=== PATIENT | male | born 1965 | race Caucasian/White ===

== ENCOUNTER 2018-01-12 10:06 | Outpatient (CLI) | payer OTHER ==
[2018-01-12 11:24] LABS: #Basophils 0.1 thou/uL (0.0-0.2); #Eosinphils 0.1 thou/uL (0.0-0.7); #Lymphocytes 1.6 thou/uL (1.20-3.40); #Monocytes 0.5 thou/uL (0.11-0.59); #Neutrophils 4.3 thou/uL (1.40-6.50); %Basophils 1.1 % (0.0-1.0); %Eosinophils 1.1 % (0.0-10.0); %Lymphocytes 24.8 % (21.0-51.0); %Monocytes 7.7 % (0.0-10.0); %Neutrophils 65.3 % (42.0-75.0); Mean Corpuscular HGB CONC 34.5 g/dL (32.0-36.0); Mean Corpuscular Hemoglobin 34.5 pg (27.0-31.0); Mean Platelet Volume 7.8 fL (7.4-10.4); Platelet Count 213 thou/uL (130-400); RBC Distribution Width 11.4 % (11.5-14.5); Red Blood Cell (RBC) Count 4.64 mill/uL (4.70-6.10); White Blood Cell (WBC) Count 6.6 thou/uL (4.8-10.8)
[2018-01-12 11:44] LABS: Anion Gap 15 mmol/L (10-20); BUN (Urea Nitrogen) 10 mg/dL (8.4-25.7); Calc. Creatinine Clearance 0 mL/min (70-130); Calcium 9.7 mg/dL (7.8-10.44); Carbon Dioxide 23 mmol/L (22-29); Chloride 105 mmol/L (98-107); Estimated GFR-MDRD Greater than 90; Glucose 76 mg/dL (70-105); Potassium 3.9 mmol/L (3.5-5.1); Sodium 139 mmol/L (136-145)
--- NOTE | 2018-01-17 20:11 | EKG ---
Test Reason : Blood Pressure : / mmHG Vent. Rate : 068 BPM Atrial Rate : 068 BPM P-R Int : 120 ms QRS Dur : 080 ms QT Int : 400 ms P-R-T Axes : 049 051 049 degrees QTc Int : 425 ms Normal sinus rhythm Normal ECG When compared with ECG of 04-OCT-2011 08:29, No significant change was found Confirmed by GIOVANNI ALMANZA (2) on 01/17/2018 8:10:27 PM Referred By: SAFIA Confirmed By:GIOVANNI ALMANZA
== END 2018-01-12 10:07 | disposition home or self-care (01) ==
LOC: LABBT 10:06
PROVIDERS: ATTEND Orthopaedic Surgery
DX: Z01.818 Encounter for other preprocedural examination (principal); M75.101 Unspecified rotator cuff tear or rupture of right shoulder, not specified as traumatic
CPT/HCPCS: 80048; 85025; 93005; 93010

== ENCOUNTER 2018-01-13 05:55 | Day surgery (SDC) | payer OTHER ==
[2018-01-12 10:28] VITALS: BMI 24.1
[2018-01-13] MEDS ORDERED: Midazolam HCl 2 mg/2 ml Vial ONE (06:25)
[2018-01-13] MEDS ORDERED: Fentanyl 250 MCG/5 ML VIAL ONE ×2 (06:25→09:07)
[2018-01-13] MEDS ORDERED: Ropivacaine 0.2% HCl/PF 20 ML ONE (06:26)
[2018-01-13] MEDS ORDERED: CEFAZOLIN/Water 2 GM/20 ML SYRINGE ONE (06:30)
[2018-01-13] MEDS ORDERED: Fentanyl 100 MCG/2 ML VIAL ONE (06:54)
--- NOTE | 2018-01-13 11:35 | OP ---
DATE OF PROCEDURE: 01/13/2018 PREOPERATIVE DIAGNOSIS: Massive recurrent rotator cuff tear, right shoulder. POSTOPERATIVE DIAGNOSES: Massive recurrent rotator cuff tear, right shoulder. SURGEON: David Grewal M.D. LEAD QA ANALYST: ERICKA Kyle PROCEDURE: Open rotator cuff repair and acromioplasty, open hardware removal right shoulder. BLOOD LOSS: Minimal. SPECIMEN: None. DRAINS: None. COMPLICATIONS: None. PROCEDURE IN DETAIL: The patient was taken to the operating room where general anesthesia was induce d. He was placed in the beach chair position. Right arm was prepped and draped in the usual sterile fashion. I made a standard deltoid splitting approach. Anterior and inferior acromioplasty was per formed, bursectomy was performed. CA ligament was taken down as needed. Rotator cuff tear was massi ve and retracted all the way to the glenoid. I placed a #5 Ethibond traction stitch and freed up the rotator cuff anteriorly, posteriorly, superiorly and inferiorly. I was able to get good coverage, a lthough not complete coverage, probably down by the teres minor there was not enough tendon left to c over, but I did get all the way from the supraspinatus back to the infraspinatus reattached to bone. I freshened up the bone and actually removed just the very lateral aspect of the articular cartilage down to cancellous bone to get a good bleeding bed. The cuff was delivered laterally. There was un fortunately a screw in the way of the anchors so I had to remove one of the screws, which was placed previously. This was done by removing bone with osteotomes and curettes and then the screw was extra cted. I tied the tendon down to the bleeding bone medially using Ankur-Marcos type sutures and then r einforced this with a double row using 2 SwiveLock devices from [employer]. Irrigation was performed. Deltoid was repaired back to bone with #1 Ethibond. Subcutaneous tissue was closed with 2-0 Vicryl, the skin was closed with lisandra. Sterile dressings applied.
== END 2018-01-13 10:55 | disposition home or self-care (01) ==
LOC: SDC 05:55
PROVIDERS: ATTEND Orthopaedic Surgery
PROC: 0LQ10ZZ Repair Right Shoulder Tendon, Open Approach (ICD-10-PCS; principal; 2018-01-13)
PROC: 0XP60YZ Removal of Other Device from Right Upper Extremity, Open Approach (ICD-10-PCS; principal; 2018-01-13)
DX: M75.101 Unspecified rotator cuff tear or rupture of right shoulder, not specified as traumatic (principal); Z98.890 Other specified postprocedural states
CPT/HCPCS: 96374; C1713; G8984-GP-CK; G8985-GP-CK; G8986-GP-CK; J2250; J2795; J3010

== ENCOUNTER 2019-07-26 12:25 | Outpatient (CLI) | payer OTHER ==
--- NOTE | 2019-07-26 14:32 | MRI ---
MRI RIGHT KNEE: Date: 07/26/19 PROVIDED CLINICAL HISTORY: Right knee pain. FINDINGS: Intact proximal fibers of the anterior cruciate ligament are not identified. There is an irregular an d undulating appearance to the proximal MCL compatible with at least high grade partial tearing. The posterior cruciate ligament, lateral collateral ligamentous complex, and extensor mechanism appear in tact. There is a complex tear involving the body of the medial meniscus with displacement of meniscal flap within the medial meniscal tibial recess. The lateral meniscus demonstrates no definite evidence for tear. Contusion is noted involving the posterolateral tibial plateau. There is a mild knee joint effusion w ith evidence for ruptured Garcia's cyst. There are foci of partial thickness articular cartilage fissuring involving the medial and lateral fa cets of the patella. Femoral tibial articular cartilage appears preserved. IMPRESSION: 1. Proximal ACL disruption. 2. Complex medial meniscal tear. 3. Proximal tibial contusion. 4. Mild knee joint effusion with evidence for ruptured Garcia's cyst. 5. Patellar chondrosis. POS: OFF
== END 2019-07-26 12:26 | disposition home or self-care (01) ==
LOC: MRI 12:25
PROVIDERS: ATTEND Orthopaedic Surgery
DX: S83.281A Other tear of lateral meniscus, current injury, right knee, initial encounter (principal); S83.231A Complex tear of medial meniscus, current injury, right knee, initial encounter; M25.461 Effusion, right knee

== ENCOUNTER 2024-10-11 02:24 | Inpatient (IN) | payer OTHER ==
[2024-10-11 03:36] VITALS: BMI 20.8
[2024-10-11] MEDS ORDERED: Heparin 10,000 UNITS/ 10 ML VIAL SLOW IVP SCH (04:00)
[2024-10-11] MEDS ORDERED: Acetaminophen 325 MG TAB PO PRN (04:46)
[2024-10-11] MEDS ORDERED: Ondansetron PF 4 MG/2 ML Vial IVP PRN (04:46)
[2024-10-11] MEDS ORDERED: Ondansetron ODT 4 MG TAB PO PRN ×2 (04:46→12:57)
[2024-10-11 05:43] LABS: #Basophils Less than 0.03 10x3/uL (0.0-0.2); %Basophils 0.8 % (0.0-1.0); %Eosinophils 4.9 % (0.0-10.0); %Lymphocytes 28.6 % (21.0-51.0); %Monocytes 18.4 % (0.0-10.0); %Neutrophils 46.5 % (42.0-75.0); Hematocrit 33.1 % (42.0-52.0); Hemoglobin 11.6 g/dL (14.0-18.0); Mean Corpuscular Hemoglobin 38.2 pg (27.0-31.0); Mean Corpuscular Volume 108.9 fL (78.0-98.0); Mean Platelet Volume 12.2 fL (7.4-10.4); Platelet Count 56 10x3/uL (130-400); RBC Distribution Width 14.3 % (11.5-14.5); Red Blood Cell (RBC) Count 3.04 mill/uL (4.70-6.10)
[2024-10-11 05:53] LABS: ALT (SGPT) 25 U/L (8-55); AST (SGOT) 52 U/L (5-34); Alkaline Phosphatase 118 U/L (40-110); Anion Gap 10 mmol/L (10-20); BUN (Urea Nitrogen) 8 mg/dL (8.4-25.7); Bilirubin, Total 3.6 mg/dL (0.2-1.2); Calc. Creatinine Clearance 97 mL/min (70-130); Calcium 7.6 mg/dL (7.8-10.44); Carbon Dioxide 21 mmol/L (22-29); Chloride 111 mmol/L (98-107); Estimated GFR 102; Globulin 4.1 g/dL (2.4-3.5); Glucose 119 mg/dL (70-105); Potassium 3.6 mmol/L (3.5-5.1); Protein, Total 6.1 g/dL (6.0-8.3); Sodium 138 mmol/L (136-145)
[2024-10-11 12:38] LABS: Troponin I Less than 0.010 ng/mL (< 0.028)
[2024-10-11] MEDS ORDERED: Lorazepam 2 MG/ML VIAL IM PRN (12:57)
[2024-10-11] MEDS ORDERED: Lorazepam 1 MG TAB PO PRN (12:57)
[2024-10-11] MEDS ORDERED: Electrolyte Replacement Protocol 1 EACH FS SCH (13:00)
[2024-10-11 13:43] LABS: HBsAg Index 0.36 S/CO (0-0.99); Hep B Surf Ag NONREACTIVE S/CO (NonReactive); Hep C IgG Ab NONREACTIVE S/CO (NonReactive); Hep C Index 0.24 S/CO (0-0.79)
[2024-10-11] MEDS ORDERED: Electrolyte Replacement Protocol FS PRN (14:00)
[2024-10-11] MEDS: Multivit, Therapeutic 1 TAB PO SCH (15:27)
[2024-10-11] MEDS: Thiamine HCl 200 MG/2 ML VIAL SLOW IVP SCH (15:27)
[2024-10-11] MEDS: Lorazepam 1 MG TAB PO SCH (15:27)
[2024-10-11] MEDS: Folic Acid 1 MG TAB PO SCH (15:27)
[2024-10-11 16:05] LABS: Troponin I Less than 0.010 ng/mL (< 0.028)
[2024-10-11 16:26] LABS: PTT 163.6 sec (22.9-36.1)
[2024-10-12] MEDS: Heparin 25,000 units/D5W 500 ML IVPB SCH (03:52)
[2024-10-12 04:51] LABS: Hematocrit 35.2 % (42.0-52.0); Hemoglobin 12.1 g/dL (14.0-18.0); Mean Corpuscular HGB CONC 34.4 g/dL (32.0-36.0); Mean Corpuscular Volume 107.6 fL (78.0-98.0); Mean Platelet Volume 11.8 fL (7.4-10.4); Platelet Count 49 10x3/uL (130-400); Red Blood Cell (RBC) Count 3.27 mill/uL (4.70-6.10)
[2024-10-12 05:00] LABS: Anion Gap 10 mmol/L (10-20); BUN (Urea Nitrogen) 9 mg/dL (8.4-25.7); Calc. Creatinine Clearance 113 mL/min (70-130); Calcium 7.6 mg/dL (7.8-10.44); Carbon Dioxide 22 mmol/L (22-29); Chloride 111 mmol/L (98-107); Estimated GFR 107; Glucose 105 mg/dL (70-105); Potassium 3.6 mmol/L (3.5-5.1); Sodium 139 mmol/L (136-145)
[2024-10-12 05:26] LABS: Band 9 % (5-11); Eosinophils 7 % (0-10); Large Platelets 16.3 % (0-5); Lymphocytes 24 % (21-51); Macrocytosis SLIGHT = 6-15 cells HPF (0-5); Monocytes 16 % (0-10); Neutrophil 43 % (42-75); Platelet Adequacy Comment Platelets Decreased; Polychromasia SLIGHT = 2-3 cells HPF (0-2); Reactive Lymphocytes 1 % (0-10)
[2024-10-12] MEDS: Folic Acid 1 MG TAB PO SCH (08:29)
[2024-10-12] MEDS: Multivit, Therapeutic 1 TAB PO SCH (08:29)
[2024-10-12] MEDS: Nicotine 14 MG PATCH TD SCH (12:08)
[2024-10-12] MEDS: Multivitamins, Adult 10 ML, Folic Acid 1 MG, Thiamine HCl 100 MG, Admixture Fee 1 EACH ... IV SCH (12:38)
[2024-10-13] MEDS: Lorazepam 1 MG TAB PO PRN (03:28)
[2024-10-13 05:51] LABS: #Basophils 0.03 10x3/uL (0.0-0.2); %Basophils 1.5 % (0.0-1.0); %Lymphocytes 30.5 % (21.0-51.0); %Neutrophils 45.5 % (42.0-75.0); Hematocrit 34.5 % (42.0-52.0); Hemoglobin 11.8 g/dL (14.0-18.0); Mean Corpuscular HGB CONC 34.2 g/dL (32.0-36.0); Mean Corpuscular Hemoglobin 37.2 pg (27.0-31.0); Mean Corpuscular Volume 108.8 fL (78.0-98.0); Mean Platelet Volume 11.2 fL (7.4-10.4); Platelet Count 54 10x3/uL (130-400); RBC Distribution Width 13.9 % (11.5-14.5); Red Blood Cell (RBC) Count 3.17 mill/uL (4.70-6.10)
[2024-10-13 06:28] LABS: Macrocytosis SLIGHT = 6-15 cells HPF (0-5); Platelet Adequacy Comment Platelets Decreased; Polychromasia SLIGHT = 2-3 cells HPF (0-2)
[2024-10-13 06:43] LABS: Anion Gap 9 mmol/L (10-20); BUN (Urea Nitrogen) 9 mg/dL (8.4-25.7); Calc. Creatinine Clearance 114 mL/min (70-130); Calcium 7.9 mg/dL (7.8-10.44); Carbon Dioxide 20 mmol/L (22-29); Chloride 112 mmol/L (98-107); Estimated GFR 107; Glucose 98 mg/dL (70-105); Potassium 3.7 mmol/L (3.5-5.1); Sodium 137 mmol/L (136-145)
[2024-10-13] MEDS ORDERED: Lorazepam 1 MG TAB PO PRN (12:58)
[2024-10-13] MEDS: Lorazepam 0.5 MG TAB PO SCH (13:42)
[2024-10-13] MEDS: Apixaban 5 MG TAB PO SCH (20:05)
[2024-10-14 04:49] LABS: Anion Gap 9 mmol/L (10-20); BUN (Urea Nitrogen) 8 mg/dL (8.4-25.7); Calc. Creatinine Clearance 120 mL/min (70-130); Calcium 7.9 mg/dL (7.8-10.44); Carbon Dioxide 19 mmol/L (22-29); Chloride 114 mmol/L (98-107); Estimated GFR 109; Glucose 90 mg/dL (70-105); Potassium 3.7 mmol/L (3.5-5.1); Sodium 138 mmol/L (136-145)
[2024-10-14 05:14] LABS: #Basophils 0.05 10x3/uL (0.0-0.2); %Eosinophils 5.6 % (0.0-10.0); %Lymphocytes 27.7 % (21.0-51.0); %Monocytes 16.9 % (0.0-10.0); %Neutrophils 47.4 % (42.0-75.0); Hematocrit 34.6 % (42.0-52.0); Mean Corpuscular HGB CONC 34.7 g/dL (32.0-36.0); Mean Corpuscular Hemoglobin 37.7 pg (27.0-31.0); Mean Corpuscular Volume 108.8 fL (78.0-98.0); Mean Platelet Volume 11.6 fL (7.4-10.4); Platelet Count 57 10x3/uL (130-400); Red Blood Cell (RBC) Count 3.18 mill/uL (4.70-6.10)
[2024-10-14] MEDS ORDERED: Thiamine 100 MG TAB PO SCH (09:00)
[2024-10-14] MEDS ORDERED: Lorazepam 0.5 MG TAB PO PRN (12:58)
[2024-10-15 06:28] LABS: #Basophils 0.04 10x3/uL (0.0-0.2); %Basophils 1.3 % (0.0-1.0); %Eosinophils 5.4 % (0.0-10.0); %Lymphocytes 33.3 % (21.0-51.0); %Monocytes 14.5 % (0.0-10.0); %Neutrophils 45.2 % (42.0-75.0); Hematocrit 37.6 % (42.0-52.0); Mean Corpuscular HGB CONC 34.6 g/dL (32.0-36.0); Mean Corpuscular Hemoglobin 37.4 pg (27.0-31.0); Mean Platelet Volume 11.5 fL (7.4-10.4); Platelet Count 67 10x3/uL (130-400); Red Blood Cell (RBC) Count 3.48 mill/uL (4.70-6.10)
[2024-10-15 06:53] LABS: Anion Gap 11 mmol/L (10-20); BUN (Urea Nitrogen) 9 mg/dL (8.4-25.7); Calc. Creatinine Clearance 91 mL/min (70-130); Calcium 8.1 mg/dL (7.8-10.44); Carbon Dioxide 18 mmol/L (22-29); Chloride 113 mmol/L (98-107); Estimated GFR 100; Glucose 109 mg/dL (70-105); Sodium 138 mmol/L (136-145)
[2024-10-15 11:42] VITALS: BP 111/75; TEMP 97.6
== END 2024-10-15 11:25 | disposition home or self-care (01) | DRG 175 ==
LOC: INTOOBSV 03:03 → MSONC 03:03 → OBSVTOIN 10:33
PROVIDERS: ADMIT Internal Medicine; ATTEND Hospitalist
DX: I26.99 Other pulmonary embolism without acute cor pulmonale (principal); J96.01 Acute respiratory failure with hypoxia; Z98.890 Other specified postprocedural states; F41.9 Anxiety disorder, unspecified; Z98.49 Cataract extraction status, unspecified eye; F10.10 Alcohol abuse, uncomplicated; Z79.899 Other long term (current) drug therapy; F32.9 Major depressive disorder, single episode, unspecified; Z79.01 Long term (current) use of anticoagulants; F17.210 Nicotine dependence, cigarettes, uncomplicated
CPT/HCPCS: 36415; 70450; 80048; 80053; 82105; 84484; 85025; 85730; 86803; 87340; 93306; 93970; G0378; J1644; J3411; J7042